=== PATIENT | female | born 1975 | race Hispanic/Latino ===

== ENCOUNTER 2024-04-23 08:59 | Emergency (ER) | payer OTHER ==
[~2024-04-23] VITALS: Ht 157.5 cm; Wt 93.9 kg
[2024-04-23] MEDS ORDERED: IBUP-2070 PO (10:33)
[2024-04-23] MEDS ORDERED: CIPR-279 PO (10:33)
[2024-04-23] MEDS ORDERED: OFLO5DRO AS (10:33)
[2024-04-23] MEDS: HYDROCODONE/ACETAMINOPHEN 5/325 MG TAB PO ONE (10:42)
[2024-04-23 11:05] LABS: SARS-CoV-2, RNA, NAAT NEGATIVE SARS CoV-2 (NEGATIVE)
[2024-04-23 11:19] LABS: INFLUENZA TYPE A Negative For Type A (NEGATIVE); INFLUENZA TYPE B Negative For Type B (NEGATIVE)
[2024-04-23 12:06] VITALS: BP 155/92; PULSE 63; RESP 18; O2SAT 99
== END 2024-04-23 12:08 | disposition home or self-care (01) ==
LOC: EDH 08:59
DX: S00.412A Abrasion of left ear, initial encounter (principal); H60.92 Unspecified otitis externa, left ear; R03.0 Elevated blood-pressure reading, without diagnosis of hypertension; X58.XXXA Exposure to other specified factors, initial encounter; Y93.89 Activity, other specified; Y92.89 Other specified places as the place of occurrence of the external cause; Y99.8 Other external cause status
CPT/HCPCS: 87635; 87804